=== PATIENT | male | born 1990 | race American Indian/Alaskan Native ===

== ENCOUNTER 2019-07-29 19:26 | Emergency (ER) | payer SELFPAY ==
[2019-07-29 19:32] VITALS: BP 145/85
== END 2019-07-29 19:30 | disposition left against medical advice (07) ==
LOC: ED 19:26
DX: Z04.1 Encounter for examination and observation following transport accident (principal); Z53.21 Procedure and treatment not carried out due to patient leaving prior to being seen by health care provider